=== PATIENT | female | born 1975 | race Caucasian/White ===

== ENCOUNTER 2017-11-03 14:36 | Emergency (ER) | payer OTHER ==
[~2017-11-03] VITALS: Ht 165.1 cm; Wt 77.0 kg
[~2017-11-03 14:36] MED LIST: COUMADIN5 MG PO; VICODIN 5-5001 EACH PO
[2017-11-03 17:55] LABS: INTER. NORMALIZED RATIO 1.8
[2017-11-03] MEDS ORDERED: XARELTO1 EACH PO (18:52)
[2017-11-03 19:31] VITALS: BP 158/118
== END 2017-11-03 19:32 | disposition home or self-care (01) ==
LOC: EME 14:36
PROVIDERS: Physician Assistant Medical
DX: I82.432 Acute embolism and thrombosis of left popliteal vein (principal); D68.51 Activated protein C resistance; F17.200 Nicotine dependence, unspecified, uncomplicated; Z86.718 Personal history of other venous thrombosis and embolism
CPT/HCPCS: 85610; 85730; 93971; 99281; 99284